=== PATIENT | male | born 1940 | race Caucasian/White ===

== ENCOUNTER 2016-10-31 09:24 | Day surgery (SDC) | payer MEDICARE, BC ==
[~2016-10-31 09:24] MED LIST: ACTOS45 M1 PO; ASPIRIN EC81 MG PO; CO Q-10100 M2 PO; COMPLETE SENIO1 EACH PO; FLOMAX0.4 M1 PO; GLYNASE3 M1 PO; PRINIVIL20 M1 PO; SIMVASTATIN20 M1 PO; TRICOR145 M2 PO
== END 2016-10-31 14:04 ==
LOC: SRG 09:24 → SHSC 09:25 → ORE 10:41 → PACU 11:31 → SHSC 11:58
PROC: 097F4ZZ Dilation of Right Eustachian Tube, Percutaneous Endoscopic Approach (ICD-10-PCS; principal; 2016-10-31)
DX: H69.81 Other specified disorders of Eustachian tube, right ear (principal); E66.01 Morbid (severe) obesity due to excess calories; E11.9 Type 2 diabetes mellitus without complications; I12.9 Hypertensive chronic kidney disease with stage 1 through stage 4 chronic kidney disease, or unspecified chronic kidney disease; N18.9 Chronic kidney disease, unspecified; Z79.82 Long term (current) use of aspirin; Z79.899 Other long term (current) drug therapy; Z88.5 Allergy status to narcotic agent; Z90.89 Acquired absence of other organs; Z96.612 Presence of left artificial shoulder joint; Z98.890 Other specified postprocedural states
CPT/HCPCS: C1726; J0171; J7030; J7050

== ENCOUNTER 2017-01-24 14:57 | Emergency (ER) | payer MEDICARE, BC ==
[2017-01-24 17:56] LABS: URINE LEUKOCYTE ESTERASE NEGATIVE (NEG); URINE PROTEIN MODERATE (NEG)
[2017-01-24 17:57] LABS: URINE APPEARANCE CLEAR; URINE BILIRUBIN NEGATIVE (NEG); URINE BLOOD SMALL (NEG); URINE COLOR YELLOW; URINE GLUCOSE (UA) MODERATE (NEG); URINE KETONE NEGATIVE (NEG); URINE NITRITE NEGATIVE (NEG)
[2017-01-24 18:10] LABS: URINE AMORPHOUS 1+; URINE EPITHELIAL CELLS 0 /[HPF] (0-10); URINE RBC RARE /[HPF] (0-5); URINE WBC RARE /[HPF] (0-5)
== END 2017-01-24 19:09 ==
LOC: EDMED 14:57
PROVIDERS: Emergency Medicine
PROC: 0T9B30Z Drainage of Bladder with Drainage Device, Percutaneous Approach (ICD-10-PCS; principal; 2017-01-24)
PROC: 4A0D7BZ Measurement of Urinary Pressure, Via Natural or Artificial Opening (ICD-10-PCS; 2017-01-24)
DX: K59.00 Constipation, unspecified (principal); R33.9 Retention of urine, unspecified; I10 Essential (primary) hypertension; N40.0 Benign prostatic hyperplasia without lower urinary tract symptoms; Z98.890 Other specified postprocedural states